=== PATIENT | female | born 1960 | race Two or more races ===

== ENCOUNTER 2018-06-28 06:25 | Day surgery (SDC) | payer OTHER ==
[~2018-06-28 06:25] MED LIST: TOPROL XL50 M1 PO
[2018-06-28] MEDS ORDERED: PERCOCET 5-3251 EACH PO (10:36)
== END 2018-06-28 11:48 | disposition home or self-care (01) ==
LOC: CIR.AMB 06:25
DX: N84.0 Polyp of corpus uteri (principal)

== ENCOUNTER 2021-03-16 07:42 | Outpatient (CLI) | payer OTHER ==
[~2021-03-16 07:42] MED LIST changes: +PERCOCET 5-3251 EACH PO
== END 2021-03-16 07:53 | disposition home or self-care (01) ==
LOC: RX STUDY 07:42
PROVIDERS: ATTEND Internal Medicine Gastroenterology
DX: R13.12 Dysphagia, oropharyngeal phase (principal)

== ENCOUNTER 2023-06-18 08:34 | Outpatient (CLI) | payer OTHER | END 2023-06-18 08:46 | disposition home or self-care (01) | LOC: RAD 08:34 | PROVIDERS: ATTEND Colon & Rectal Surgery | DX: K59.09 Other constipation (principal) ==

== ENCOUNTER 2023-08-29 11:30 | Inpatient (IN) | payer OTHER ==
[~2023-08-29] VITALS: Ht 157.5 cm; Wt 83.9 kg
[2023-08-29 14:23] LABS: ALBUMIN 3.9 gm/dL (3.4-5.0); BILIRUBIN TOTAL 0.41 mg/dL (0.3-1.2); CALCIUM 10.4 mg/dL (8.5-10.1); CREATININE SERUM 0.62 mg/dL (0.55-1.02); GFR 97.22; POTASSIUM 3.64 mEq/L (3.5-5.1); TOTAL PROTEIN 7.9 gm/dL (6.4-8.2)
[2023-08-29] MEDS ORDERED: COZAAR50 MG PO (15:04)
[2023-08-29] MEDS ORDERED: FOSAMAX70 MG PO (15:05)
[2023-09-04 17:05] LABS: HEMATOCRIT 43.3 % (36.0-45.00); HEMOGLOBIN 14.1 g/dL (12.0-15.00); MEAN CELL VOLUME 89.7 fL (80.00-100.00); MEAN CORPUSCULAR HEMOGLOBIN 29.2 pg (27.00-32.0); MEAN CORPUSCULAR HGB CONC 32.5 g/dl (32.0-36.0); PLATELET COUNT 230 K/uL (150-450); RED BLOOD COUNT 4.83 M/uL (4.00-6.00); RED CELL DISTRIBUTION WIDTH 13.8 % (11.5-14.5)
[2023-09-04 19:27] LABS: ABG PH 7.329 (7.35-7.45); BASE EXCESS -2.1 mmol/l; BICARBONATE 24.2 mmol/l (23-25); SaO2 98.2 %; Tco2 25.6 mmol/l
[2023-09-04 20:08] LABS: allen test SATISFACTORY; o2 60 %; puncture site RADIAL LEFT
[2023-09-04 23:44] LABS: ABG PH 7.334 (7.35-7.45); ABG PO2 129.4 mmHg (80-100); ABG pCO2 45.9 mmHg (35-45); BASE EXCESS -2.2 mmol/l; BICARBONATE 23.9 mmol/l (23-25); SaO2 98.6 %; Tco2 25.3 mmol/l; allen test SATISFACTORY; puncture site RADIAL LEFT
[2023-09-04 23:46] LABS: o2 48 %
[2023-09-05 07:09] LABS: HEMATOCRIT 36.7 % (36.0-45.00); HEMOGLOBIN 12.3 g/dL (12.0-15.00); MEAN CORPUSCULAR HEMOGLOBIN 29.4 pg (27.00-32.0); MEAN CORPUSCULAR HGB CONC 33.4 g/dl (32.0-36.0); PLATELET COUNT 206 K/uL (150-450); RED BLOOD COUNT 4.17 M/uL (4.00-6.00); RED CELL DISTRIBUTION WIDTH 13.9 % (11.5-14.5)
[2023-09-05 07:17] LABS: ALBUMIN 2.8 gm/dL (3.4-5.0); CALCIUM 8.6 mg/dL (8.5-10.1); CREATININE SERUM 0.47 mg/dL (0.55-1.02); GFR 133.83; MAGNESIUM 1.8 mg/dL (1.8-2.4); PHOSPHOROUS 2.8 mg/dL (2.5-4.9); POTASSIUM 3.54 mEq/L (3.5-5.1)
[2023-09-05 10:04] LABS: ABG PH 7.411 (7.35-7.45)
[2023-09-05 10:05] LABS: BASE EXCESS 1.3 mmol/l; BICARBONATE 26.1 mmol/l (23-25); SaO2 90.6 %; Tco2 27.4 mmol/l; allen test SATISFACTORY; o2 21 %; puncture site RADIAL RIGHT
[2023-09-06 08:06] LABS: HEMATOCRIT 35.4 % (36.0-45.00); MEAN CELL VOLUME 88.7 fL (80.00-100.00); MEAN CORPUSCULAR HEMOGLOBIN 30.1 pg (27.00-32.0); PLATELET COUNT 194 K/uL (150-450); RED CELL DISTRIBUTION WIDTH 13.8 % (11.5-14.5)
[2023-09-06 08:34] LABS: CALCIUM 9.1 mg/dL (8.5-10.1); CREATININE SERUM 0.46 mg/dL (0.55-1.02); GFR 137.2; POTASSIUM 3.76 mEq/L (3.5-5.1)
[2023-09-06 08:56] LABS: PHOSPHOROUS 1.8 mg/dL (2.5-4.9)
[2023-09-06 13:08] LABS: ABG PH 7.444 (7.35-7.45); ABG pCO2 39.8 mmHg (35-45); BASE EXCESS 2.5 mmol/l; BICARBONATE 26.6 mmol/l (23-25); SaO2 91.5 %; Tco2 27.9 mmol/l
[2023-09-06 13:10] LABS: allen test SATISFACTORY; o2 21 %; puncture site RADIAL LEFT
== END 2023-09-06 14:21 | disposition home or self-care (01) | DRG 330 ==
LOC: O/R 09-04 07:00 → SURH 09-04 07:00 → SURG 09-04 11:30 → SURH 09-04 15:53
PROVIDERS: Internal Medicine Geriatric Medicine; ADMIT Colon & Rectal Surgery; ATTEND Colon & Rectal Surgery
PROC: 0DBP4ZZ Excision of Rectum, Percutaneous Endoscopic Approach (ICD-10-PCS; 2023-09-04)
PROC: 0DJD8ZZ Inspection of Lower Intestinal Tract, Via Natural or Artificial Opening Endoscopic (ICD-10-PCS; 2023-09-04)
PROC: 4A12X4Z Monitoring of Cardiac Electrical Activity, External Approach (ICD-10-PCS; 2023-09-04)
PROC: 3E0F7SF Introduction of Other Gas into Respiratory Tract, Via Natural or Artificial Opening (ICD-10-PCS; 2023-09-04)
PROC: 3E0F7GC Introduction of Other Therapeutic Substance into Respiratory Tract, Via Natural or Artificial Opening (ICD-10-PCS; 2023-09-04)
PROC: 0DTN4ZZ Resection of Sigmoid Colon, Percutaneous Endoscopic Approach (ICD-10-PCS; principal; 2023-09-04 15:30)
DX: K59.02 Outlet dysfunction constipation (principal); E87.29 Other acidosis; K92.1 Melena; K64.2 Third degree hemorrhoids; L29.0 Pruritus ani; R09.02 Hypoxemia; J45.20 Mild intermittent asthma, uncomplicated; I10 Essential (primary) hypertension; G47.39 Other sleep apnea